=== PATIENT | male | born 1955 | race African-American/Black ===

== ENCOUNTER 2017-12-05 19:31 | Emergency (ER) | payer SELFPAY ==
[~2017-12-05] VITALS: Ht 170.2 cm; Wt 70.5 kg
[2017-12-05 19:35] VITALS: BP 134/95
== END 2017-12-05 22:49 | disposition left against medical advice (07) ==
LOC: EMS 19:32
DX: M10.9 Gout, unspecified (principal); I10 Essential (primary) hypertension; F17.210 Nicotine dependence, cigarettes, uncomplicated; Z53.21 Procedure and treatment not carried out due to patient leaving prior to being seen by health care provider